=== PATIENT | male | born 1985 | race Caucasian/White ===

== ENCOUNTER 2016-08-02 08:37 | Emergency (ER) | payer BC ==
[~2016-08-02] VITALS: Ht 182.9 cm; Wt 113.6 kg
[2016-08-02 08:39] VITALS: BP 135/82; PULSE 113; RESP 17; TEMP 99.3; O2SAT 95
[2016-08-02 09:02] VITALS: BP 139/82; PULSE 102; RESP 20; O2SAT 96
[2016-08-02] MEDS ORDERED: ALBUAER3 INH (09:23)
[2016-08-02 09:28] LABS: AUTOMATED NEUTROPHIL # 9.6 TH/MM3 (1.8-7.7); BASOPHIL % 0.1 % (0.0-2.0); EOSINOPHIL % 0.1 % (0.0-4.0); HEMATOCRIT 40.7 % (39.0-51.0); HEMO FLAGS DIFF FINAL; LYMPH % 6.6 % (9.0-44.0); LYMPHOCYTE # 0.7 TH/MM3 (1.0-4.8); MEAN CELL VOLUME 86.6 FL (80.0-100.0); MEAN CORPUSCULAR HEMOGLOBIN 30.4 PG (27.0-34.0); MEAN CORPUSCULAR HGB CONC 35.1 % (32.0-36.0); MONO % 4.7 % (0.0-8.0); NEUT % 88.5 % (16.0-70.0); PLATELET COUNT 266 TH/MM3 (150-450); RED CELL DISTRIBUTION WIDTH 13.1 % (11.6-17.2); WHITE BLOOD COUNT 10.9 TH/MM3 (4.0-11.0)
[2016-08-02] MEDS ORDERED: ONDANSETRON HCL 4 MG/2 ML VIAL IV PUSH ONE (09:30)
[2016-08-02] MEDS ORDERED: SODIUM CHLOR 0.9% 1000 ML INJ 1,000 ML IV ONE (09:30)
[2016-08-02 09:41] LABS: ANION GAP 7 MEQ/L (5-15); AST (GOT) 13 U/L (15-37); BLOOD UREA NITROGEN 20 MG/DL (7-18); CHLORIDE 105 MEQ/L (98-107); GLOMERULAR FILTRATION RATE 81 ML/MIN (>89); POTASSIUM 3.8 MEQ/L (3.5-5.1); SODIUM (NA) 139 MEQ/L (136-145)
[2016-08-02 09:44] LABS: ALKALINE PHOSPHATASE 45 U/L (45-117); ALT (GPT) 33 U/L (12-78); TOTAL BILIRUBIN ADULT 1.1 MG/DL (0.2-1.0)
[2016-08-02] MEDS ORDERED: HYDROmorphone HCL PF 1 MG/ML VIAL IV PUSH ONE (11:15)
[2016-08-02] MEDS ORDERED: ZOFR4TAB3 SL (12:34)
--- NOTE | 2016-08-02 12:34 | PD ---
HPI Chief Complaint: GI Complaint Time Seen by Provider: 08:59 Travel History International Travel<30 days: No Contact w/Intl Traveler<30days: No Traveled to known affect area: No History of Present Illness HPI Patient is a 31-year-old male comes in complaining of nausea, vomiting, diarrhea. He says it started Tuesday night. He says he has vomited several times throughout the day and this morning. He says he has had multiple episodes of diarrhea as well. He denies seeing any blood in his stool or his vomit. He denies any abdominal pain. He says his has been sick with similar symptoms. He denies any recent antibiotic use or any recent travel. PFSH Past Medical History Kidney Stones: Yes (pt sts HX of stone 10+yrs ago) Tetanus Vaccination: < 5 Years Influenza Vaccination: No Social History Alcohol Use: No Tobacco Use: Yes (pt sts sometimes) Substance Use: No Allergies-Medications (Allergen,Severity, Reaction): Coded Allergies: Penicillin (Verified Allergy, Severe, 08/02/16) pt sts unknown reaction Reported Meds & Prescriptions Reported Meds & Active Scripts Active Reported Proair Hfa 8.5 GM Inh (Albuterol Sulfate) 90 Mcg/Act Aer 2 Puff INH Q4-6H PRN 108 mcg/actuation Review of Systems Except as stated in HPI: all other systems reviewed are Neg General / Constitutional: No: Fever, Chills HENT: No: Headaches, Lightheadedness Cardiovascular: No: Chest Pain or Discomfort Respiratory: No: Shortness of Breath Gastrointestinal: Positive: Nausea, Vomiting, Diarrhea, No: Abdominal Pain Musculoskeletal: No: Weakness, Edema, Pain Skin: No Rash, No Change in Pigmentation Neurologic: No: Weakness, Dizziness Physical Exam Narrative GENERAL: Awake and alert, in no acute distress. SKIN: Warm and dry. HEAD: Atraumatic. Normocephalic. EYES: Pupils equal and round. No scleral icterus. ENT: Mucous membranes pink and moist. NECK: Trachea midline. No JVD. CARDIOVASCULAR: Regular rate and rhythm. No murmur appreciated. RESPIRATORY: No accessory muscle use. Clear to auscultation. Breath sounds equal bilaterally. GASTROINTESTINAL: Abdomen soft, non-tender, nondistended. MUSCULOSKELETAL: No obvious deformities. No clubbing. No cyanosis. No edema. NEUROLOGICAL: Awake and alert. No obvious cranial nerve deficits. Motor grossly within normal limits. Normal speech. PSYCHIATRIC: Appropriate mood and affect; insight and judgment normal. Data Data Last Documented VS Vital Signs Date Time Temp Pulse Resp B/P Pulse Ox O2 Delivery O2 Flow Rate FiO2 08/02/16 09:02 102 20 139/82 96 08/02/16 08:39 99.3 Orders Complete Blood Count With Diff (08/02/16 09:08) Comprehensive Metabolic Panel (08/02/16 09:08) Iv Access Insert/Monitor (08/02/16 09:08) Ondansetron Inj (Zofran Inj) (08/02/16 09:30) Sodium Chlor 0.9% 1000 Ml Inj (Ns 1000 M (08/02/16 09:30) Hydromorphone Pf Inj (Dilaudid Pf Inj) (08/02/16 11:15) Labs Laboratory Tests Test 08/02/16 09:15 White Blood Count 10.9 TH/MM3 Red Blood Count 4.70 MIL/MM3 Hemoglobin 14.3 GM/DL Hematocrit 40.7 % Mean Corpuscular Volume 86.6 FL Mean Corpuscular Hemoglobin 30.4 PG Mean Corpuscular Hemoglobin 35.1 % Concent Red Cell Distribution Width 13.1 % Platelet Count 266 TH/MM3 Mean Platelet Volume 8.5 FL Neutrophils (%) (Auto) 88.5 % Lymphocytes (%) (Auto) 6.6 % Monocytes (%) (Auto) 4.7 % Eosinophils (%) (Auto) 0.1 % Basophils (%) (Auto) 0.1 % Neutrophils # (Auto) 9.6 TH/MM3 Lymphocytes # (Auto) 0.7 TH/MM3 Monocytes # (Auto) 0.5 TH/MM3 Eosinophils # (Auto) 0.0 TH/MM3 Basophils # (Auto) 0.0 TH/MM3 CBC Comment DIFF FINAL Differential Comment Sodium Level 139 MEQ/L Potassium Level 3.8 MEQ/L Chloride Level 105 MEQ/L Carbon Dioxide Level 27.0 MEQ/L Anion Gap 7 MEQ/L Blood Urea Nitrogen 20 MG/DL Creatinine 1.05 MG/DL Estimat Glomerular Filtration 81 ML/MIN Rate Random Glucose 100 MG/DL Calcium Level 8.2 MG/DL Total Bilirubin 1.1 MG/DL Aspartate Amino Transf 13 U/L (AST/SGOT) Alanine Aminotransferase 33 U/L (ALT/SGPT) Alkaline Phosphatase 45 U/L Total Protein 7.9 GM/DL Albumin 4.0 GM/DL MDM Medical Decision Making Medical Screen Exam Complete: Yes Emergency Medical Condition: Yes Differential Diagnosis Gastroenteritis versus gastritis versus colitis Narrative Course Patient is a 31-year-old male comes in complaining of nausea, vomiting, diarrhea. Exam shows no acute abnormalities. Abdomen is soft and nontender. IV established, labs sent. Labs show no acute abnormalities. Patient given IV fluids and Zofran. He reports feeling better. He is able to tolerate drinking Gatorade without vomiting. Patient will be discharged with prescription for Zofran. Advised to drink plenty of fluids. Advised to eat a bland diet if he is feeling hungry. Advised follow-up with her primary care physician. Advised to return to the ED as needed for any worsening symptoms. Diagnosis Primary Impression: Gastroenteritis Patient Instructions: Acute Nausea and Vomiting (ED), General Instructions Additional Instructions: Drink plenty of fluids. You can take Zofran as needed for nausea. Follow up with a primary care physician. Return to the ED as needed for any worsening symptoms. Scripts Ondansetron Odt (Zofran Odt)4 Mg Tab4 Mg SL Q6HR PRN (Nausea/Vomiting) #7 TAB Ref 0 Prov:Wilda Joseph MD 08/02/16 Disposition: 01 DISCHARGE HOME Condition: Stable Wilda Joseph MD Aug 02, 2016 12:34
[2016-08-02 13:12] VITALS: BP 131/58
== END 2016-08-02 13:15 | disposition home or self-care (01) ==
LOC: NEPE 08:37
DX: K52.9 Noninfective gastroenteritis and colitis, unspecified (principal); Z72.0 Tobacco use; Z87.442 Personal history of urinary calculi
CPT/HCPCS: 80053; 85025; 96361; 96374; 96375; 99284; J1170; J2405; J7030

== ENCOUNTER 2017-07-27 23:07 | Emergency (ER) | payer BC, MEDICAID ==
[~2017-07-27] VITALS: Ht 182.9 cm; Wt 113.5 kg
[~2017-07-27 23:07] MED LIST: ALBUAER3 INH; ZOFR4TAB3 SL
[2017-07-27 23:53] VITALS: BP 168/94; PULSE 84; RESP 18; TEMP 98.5; O2SAT 96
[2017-07-28] MEDS ORDERED: LIDOCAINE VISCOUS 2% SOLN 15 ML UDC SWISH-SWAL STA (01:43)
--- NOTE | 2017-07-28 01:43 | PD ---
HPI Chief Complaint: Abdominal Pain Time Seen by Provider: 01:15 Travel History International Travel<30 days: No Contact w/Intl Traveler<30days: No Traveled to known affect area: No History of Present Illness HPI Patient is a 32-year-old male who for one day has had epigastric-like pain made worse by movement he has no nausea no vomiting no diarrhea he did not take anything for the pain to alleviate his symptoms. Denies trauma denies travel denies eating any bad food. He also reports that he is for a few months had a lump in his perirectal area that he was sent by his primary care doctor GI doctor who sent him to a colorectal specialist to be never followed up with and he is reporting that he felt like it may have popped today he denies abscess he is not on antibiotics it is not painful and he has had no difficulty or change in his bowel habits he thinks is are 2 separate complaints does not think they' re related. PFSH Past Medical History Asthma: Yes Diminished Hearing: No Kidney Stones: Yes (pt sts HX of stone 10+yrs ago) Immunizations Current: Yes Past Surgical History Surgical History: No Previous Surgery Social History Alcohol Use: Yes Tobacco Use: No Substance Use: No Allergies-Medications (Allergen,Severity, Reaction): Coded Allergies: penicillin G (Unverified Allergy, Severe, 07/27/17) pt sts unknown reaction Reported Meds & Prescriptions Reported Meds & Active Scripts Active Ibuprofen 600 Mg Tab 600 Mg PO Q6H PRN Zofran Odt (Ondansetron Odt) 4 Mg Tab 4 Mg SL Q6HR PRN Reported Proair Hfa 8.5 GM Inh (Albuterol Sulfate) 90 Mcg/Act Aer 2 Puff INH Q4-6H PRN 108 mcg/actuation Review of Systems Except as stated in HPI: all other systems reviewed are Neg Physical Exam Narrative GENERAL: Nontoxic-appearing awake alert afebrile SKIN: Warm and dry. HEAD: Atraumatic. Normocephalic. EYES: Pupils equal and round. No scleral icterus. No injection or drainage. ENT: No nasal bleeding or discharge. Mucous membranes pink and moist. NECK: Trachea midline. No JVD. CARDIOVASCULAR: Regular rate and rhythm. RESPIRATORY: No accessory muscle use. Clear to auscultation. Breath sounds equal bilaterally. GASTROINTESTINAL: Abdomen positive tenderness in his epigastrium on the left upper quadrant with percussion localized nonradiating no back pain no CVA tenderness on that side soft, non-tender, nondistended. Hepatic and splenic margins not palpable. Rectal patient has no signs of abscess no fissures no discharge there is a very small possible lymph node felt in the peroneal area it is not indurated it is not boggy is not mobile it is minimal 2 cm round most feels like a lymph node MUSCULOSKELETAL: Extremities without clubbing, cyanosis, or edema. No obvious deformities. NEUROLOGICAL: Awake and alert. No obvious cranial nerve deficits. Motor grossly within normal limits. Five out of 5 muscle strength in the arms and legs. Normal speech. PSYCHIATRIC: Appropriate mood and affect; insight and judgment normal. Data Data Last Documented VS Vital Signs Date Time Temp Pulse Resp B/P (MAP) Pulse Ox O2 Delivery O2 Flow Rate FiO2 07/27/17 23:53 98.5 84 18 168/94 (118) 96 Orders Orders Al-Mag Hy-Si 40-40-4 Mg/Ml Liq (Mag-Al P (07/28/17 01:45) Lidocaine 2% Viscous (Xylocaine 2% Visco (07/28/17 01:43) Ketorolac Inj (Toradol Inj) (07/28/17 02:15) Chest, Pa & Lat (07/28/17 ) Ed Discharge Order (07/28/17 03:01) [facility] Medical Decision Making Medical Screen Exam Complete: Yes Emergency Medical Condition: Yes Differential Diagnosis Patient has epigastric area tenderness it may be gastric GERD costochondritis cardiac esophagitis versus pneumonia versus rib fracture versus muscle strain Narrative Course Chest x-ray no signs of injury feels better after Toradol and is ready for dischage Dr Nettles colorectal number given Diagnosis Primary Impression: Costochondritis Referrals: Jose Nettles MD Patient Instructions: Costochondritis (ED), General Instructions Scripts Ibuprofen (Ibuprofen) 600 Mg Tab 600 MG PO Q6H Y for Pain/Inflammation, #40 TAB 0 Refills Prov: Carmine Muniz MD 07/28/17 Disposition: 01 DISCHARGE HOME Condition: Good Carmine Muniz MD Jul 28, 2017 01:43
[2017-07-28] MEDS ORDERED: ALUMINUM/MAGNESIUM/SIMETH 30 ML CUP PO ONE (01:45)
[2017-07-28] MEDS ORDERED: KETOROLAC TROMETHAMINE 60 MG/2 ML (IM) VIAL IM ONE (02:15)
--- NOTE | 2017-07-28 02:37 | RADRPT ---
EXAM DATE/TIME: 07/28/2017 02:24 [place] COMPARISON: No previous studies available for comparison. INDICATIONS : Left side chest pain. MEDICAL HISTORY : None. SURGICAL HISTORY : None. ENCOUNTER: Initial ACUITY: 1 day PAIN SCORE: 7/10 LOCATION: Left lower chest FINDINGS: PA and lateral views of the chest demonstrate a normal-sized cardiac silhouette. There is no effusion , consolidation, or pneumothorax. The bones and soft tissues demonstrate no acute abnormality. CONCLUSION: No acute cardiopulmonary abnormality is identified. Dmitri Rodriguez MD on July 28, 2017 at 2:35 Board Certified Radiologist. This report was verified electronically.
[2017-07-28] MEDS ORDERED: IBUP-232 PO (03:00)
== END 2017-07-28 04:46 | disposition home or self-care (01) ==
LOC: NEPE 23:07
DX: M94.0 Chondrocostal junction syndrome [Tietze] (principal); J45.909 Unspecified asthma, uncomplicated; Z88.0 Allergy status to penicillin
CPT/HCPCS: 71046; 96372; 99283; J1885